=== PATIENT | female | born 1975 | race Caucasian/White ===

== ENCOUNTER 2018-05-16 08:20 | Inpatient (IN) ==
--- NOTE | 2018-05-16 08:39 | P.HPOB ---
History of Present Illness Primary Care Physician: No Primary Care Physician Medications and Allergies Allergies Allergy/AdvReac Type Severity Reaction Status Date / Time No Known Allergies Allergy Uncoded 01/13/15 21:59 Caprini VTE Risk Assessment Caprini Risk Assessment Model: Point Value = 1 Point Value = 2 Point Value = 3 Point Value = 5 Age 41-60 Minor surgery BMI > 25 kg/m2 Swollen legs Varicose veins or History of unexplained or recurrent spontaneous Oral contraceptives or hormone replacement Sepsis (< 1 month) Serious lung disease, including pneumonia (< 1 month) Abnormal pulmonary function Acute myocardial infarction Congestive heart failure (< 1 month) History of inflammatory bowel disease Medical patient at bed rest Age 61-74 Arthroscopic surgery Major open surgery (> 45 min) Laparoscopic surgery (> 45 min) Malignancy Confined to bed (> 72 hours) Immobilizing plaster cast Central venous access Age >= 75 History of VTE Family history of VTE Factor V Leiden Prothrombin [id number] Lupus anticoagulant Anticardiolipin antibodies Elevated serum homocysteine Heparin-induced thrombocytopenia Other congenital or acquired thrombophilia Stroke (< 1 month) Elective arthroplasty Hip, pelvis, or leg fracture Acute spinal cord injury (< 1 month) Prophylaxis Regimen: Total Risk Factor Score Risk Level Prophylaxis Regimen 0-1 Low Early ambulation 2 Moderate Order ONE of the following: *Sequential Compression Device (SCD) *Heparin 5000 units SQ BID 3-4 Higher Order ONE of the following medications: *Heparin 5000 units SQ TID *Enoxaparin/Lovenox 40 mg SQ daily (WT < 150 kg, CrCl > 30 mL/min) *Enoxaparin/Lovenox 30 mg SQ daily (WT < 150 kg, CrCl > 10-29 mL/min) *Enoxaparin/Lovenox 30 mg SQ BID (WT < 150 kg, CrCl > 30 mL/min) AND/OR *Sequential Compression Device (SCD) 5 or more Highest Order ONE of the following medications: *Heparin 5000 units SQ TID (Preferred with Epidurals) *Enoxaparin/Lovenox 40 mg SQ daily (WT < 150 kg, CrCl > 30 mL/min) *Enoxaparin/Lovenox 30 mg SQ daily (WT < 150 kg, CrCl > 10-29 mL/min) *Enoxaparin/Lovenox 30 mg SQ BID (WT < 150 kg, CrCl > 30 mL/min) AND *Sequential Compression Device (SCD)
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
[2018-05-16] MEDS ORDERED: Sod Chloride 0.9% Inj 1,000 ML IV.CONT PRN (08:46)
[2018-05-16] MEDS ORDERED: Naloxone Inj 0.4 MG/ML Vial IV.PUSH PRN (08:46)
[2018-05-16] MEDS ORDERED: Sodium Chlor 0.9% Inj 500 ML IV.SIG PRN (08:46)
[2018-05-16] MEDS ORDERED: fentaNYL Citrate Inj 100 MCG/2 ML Ampul IV.PUSH PRN ×2 (08:46)
[2018-05-16] MEDS ORDERED: fentaNYL 2MCG-Bupiv 0.125% Epi 150 ML EPIDURAL ONE (08:59)
[2018-05-16] MEDS ORDERED: Oxytocin 30 Units/500ml Premix 30 UNITS/500 ML BAG IV.SIG ONE (09:00)
[2018-05-16] MEDS ORDERED: Citric Acid/Sodium Citrate Liq 30 ML UDC PO SCH (09:00)
[2018-05-16 09:12] LABS: Baso % (Auto) 0.3 % (0.0-2.0); Eos # (Auto) 0.1 th/mm3 (0.0-0.4); Eos % (Auto) 0.6 % (0.0-4.0); Hematocrit 38.5 % (35.0-46.0); Hemoglobin 13.5 gm/dL (11.6-15.3); Lymph % (Auto) 19.5 % (9.0-44.0); Mean Corpuscular Hemoglobin 32.6 pg (27.0-34.0); Mono # (Auto) 0.7 th/mm3 (0.0-0.9); Mono % (Auto) 7.2 % (0.0-8.0); Neut # (Auto) 7.4 th/mm3 (1.8-7.7); Neut % (Auto) 72.4 % (16.0-70.0); Platelet Count 163 th/mm3 (150-450); Red Blood Count 4.14 mil/mm3 (4.00-5.30); Red Cell Distribution Width 14.9 % (11.6-17.2); White Blood Count 10.2 th/mm3 (4.0-11.0)
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
[2018-05-16] MEDS ORDERED: Penicillin G Potassium Inj 5,000,000 UNIT in Sodium Chloride 0.9% Inj 100 ML IV.SIG ONE (09:30)
[2018-05-16] MEDS ORDERED: fentaNYL Citrate Inj 100 MCG/2 ML Ampul EPIDURAL ONE (09:38)
[2018-05-16 09:55] LABS: Hepatitits B Surface Antigen Reactive (Nonreactive)
[2018-05-16 09:57] LABS: Rubella IgG Antibody 60.7 IU/mL (10.0-500.0)
[2018-05-16] MEDS ORDERED: fentaNYL 2MCG-Bupiv 0.125% Epi 150 ML EPIDURAL PRN (10:00)
[2018-05-16 10:24] LABS: Hepatitis A IgM Antibody Nonreactive (Nonreactive)
[2018-05-16 10:33] LABS: Alanine Aminotransferase 123 U/L (10-53); Albumin 2.3 g/dL (3.4-5.0); Anion Gap 9 meq/L (5-15); Aspartate Aminotransferase 137 U/L (15-37); Blood Urea Nitrogen 7 mg/dL (7-18); Calcium 8.2 mg/dL (8.5-10.1); Carbon Dioxide 21.6 meq/L (21.0-32.0); Chloride 109 meq/L (98-107); Glomerular Filtration Rate Greater Than 89 mL/min (>89); Glucose,Random 97 mg/dL (74-106); Potassium 3.4 meq/L (3.5-5.1); Sodium 140 meq/L (136-145)
[2018-05-16 10:36] LABS: Alkaline Phosphatase 246 U/L (45-117); Total Protein 6.9 g/dL (6.4-8.2)
--- NOTE | 2018-05-16 11:35 | P.OBLABOR ---
Subjective Interval history: Patient states she feels comfortable. IUPC placed for better monitoring of contractions. scalp electrode not place due to mother with positive labs for hep B and hep C. Objective Vital Signs: Vital Signs - 8 hr 05/16/18 08:33 05/16/18 08:45 05/16/18 09:13 Temperature Pulse Rate 83 73 Respiratory Rate 18 Blood Pressure 148/77 H 144/73 H 05/16/18 09:25 05/16/18 09:30 05/16/18 10:10 Temperature 97.7 F Pulse Rate 86 74 Respiratory Rate 19 Blood Pressure 138/76 05/16/18 10:15 05/16/18 10:37 05/16/18 10:45 Temperature 97.6 F Pulse Rate 87 67 70 Respiratory Rate 16 Blood Pressure 128/82 126/76 05/16/18 11:15 Temperature Pulse Rate 75 Respiratory Rate Blood Pressure 118/72 Objective: Pelvic Exam: Cervix: mid position Dilatation:8 Effacement: 80 Station: 0 Presentation: vertex Membranes: ruptured Uterine Contractions: Q3 mins FHT's: Category: 2 Baseline: 130 Reactive: yes Variability:mod Decels: variables Assessment and Plan - Diagnosis (1) Active labor Status: Acute (2) Drug dependence affecting Code(s): O99.320 - Drug use complicating , unspecified trimester Status: Acute (3) Hepatitis B Code(s): B19.10 - Unspecified viral hepatitis B without hepatic coma Status: Acute (4) Hepatitis C Code(s): B19.20 - Unspecified viral hepatitis C without hepatic coma Status: Acute - Plan 42-year-old at 36 weeks and 6 days who presents in active labor. Discussed with patient the risks of including uterine rupture and she would like to proceed. Discussed with OB hospitalist, Dr. Peña, she agrees that patient is a good candidate for . -Anticipate vaginal delivery () -Cervical exam 880/0 -Cat 2 tracing, NST reassuring - labs: positive for hep B and hep C, will obtain hep C viral load. Pt denies IVDU. -GBS positive -c/w penicillin for GBS prophylaxis -IUPC placed and amnioinfusion started due to variables on monitoring sdw Dr. Ortega - Attending Attestation I was present with resident for the entirety of the the procedure: placement of IUPC. Will not place scalp electrodes given hepatitis B and C positive status. Counseled mom on hepatitis status and will collect liver enzymes and viral load. Baby will require hepatitis B immunoglobulin and vaccine within 12 hours of , will alert pediatric team. Also will alert pediatric team regarding mom's Subutex use. Baby having a variable decelerations but with good variability and accelerations. Will continue to monitor closely. We have given bolus of fluid and also attempting repositioning on her side, also will try amnioinfusion.
--- NOTE | 2018-05-16 12:15 | P.OBLABOR ---
Addendum entered and electronically signed by Hiram Fry MD, R2 12:21: reviewed monitoring strip with , it is Cat 1, NST reassuring. Original Note: Subjective Interval history: Cervical check done again. Patient is progressing well. Mild discomfort with contractions. No other complaints. Objective Vital Signs: Vital Signs - 8 hr 05/16/18 08:33 05/16/18 08:45 05/16/18 09:13 Temperature Pulse Rate 83 73 Respiratory Rate 18 Blood Pressure 148/77 H 144/73 H 05/16/18 09:25 05/16/18 09:30 05/16/18 10:10 Temperature 97.7 F Pulse Rate 86 74 Respiratory Rate 19 Blood Pressure 138/76 05/16/18 10:15 05/16/18 10:37 05/16/18 10:45 Temperature 97.6 F Pulse Rate 87 67 70 Respiratory Rate 16 Blood Pressure 128/82 126/76 05/16/18 11:15 05/16/18 11:31 05/16/18 11:45 Temperature Pulse Rate 75 74 70 Respiratory Rate Blood Pressure 118/72 127/51 L 119/73 05/16/18 11:51 05/16/18 12:00 Temperature Pulse Rate 66 Respiratory Rate 18 Blood Pressure 112/65 Objective: Pelvic Exam: Cervix: mid pos Dilatation:9-10 Effacement: 100 Station: 0 Presentation: vertex Membranes: ruptured Uterine Contractions: Q3 mins FHT's: Category: 2 Baseline:120 Reactive: yes Variability:mod Decels: variables Assessment and Plan - Diagnosis (1) Active labor Status: Acute (2) Drug dependence affecting Code(s): O99.320 - Drug use complicating , unspecified trimester Status: Acute (3) Hepatitis B Code(s): B19.10 - Unspecified viral hepatitis B without hepatic coma Status: Acute (4) Hepatitis C Code(s): B19.20 - Unspecified viral hepatitis C without hepatic coma Status: Acute - Plan 42-year-old at 36 weeks and 6 days who presents in active labor. Discussed with patient the risks of including uterine rupture and she would like to proceed. Discussed with OB hospitalist, Dr. Peña, she agrees that patient is a good candidate for . -Anticipate vaginal delivery () -Cervical exam 9-/0 -Cat 2 tracing, NST reassuring - labs: positive for hep B and hep C, will obtain hep C viral load. Pt denies IVDU. -GBS positive -c/w penicillin for GBS prophylaxis -IUPC placed and amnioinfusion started due to variables on monitoring sdw Dr. Ortega - Attending Attestation I was present with resident during reexamination of patient. She is now 9 to 10 cm with anterior cervical lip. Will continue close monitoring with anticipation of vaginal delivery.
--- NOTE | 2018-05-16 13:16 | P.OBLABOR ---
Subjective Interval history: Cervical check done again. Patient is progressing well. Mild discomfort with contractions. No other complaints. Objective Vital Signs: Vital Signs - 8 hr 05/16/18 08:33 05/16/18 08:45 05/16/18 09:13 Temperature Pulse Rate 83 73 Respiratory Rate 18 Blood Pressure 148/77 H 144/73 H 05/16/18 09:25 05/16/18 09:30 05/16/18 10:10 Temperature 97.7 F Pulse Rate 86 74 Respiratory Rate 19 Blood Pressure 138/76 05/16/18 10:15 05/16/18 10:37 05/16/18 10:45 Temperature 97.6 F Pulse Rate 87 67 70 Respiratory Rate 16 Blood Pressure 128/82 126/76 05/16/18 11:15 05/16/18 11:31 05/16/18 11:45 Temperature Pulse Rate 75 74 70 Respiratory Rate Blood Pressure 118/72 127/51 L 119/73 05/16/18 11:51 05/16/18 12:00 05/16/18 12:15 Temperature 97.7 F Pulse Rate 66 70 Respiratory Rate 18 Blood Pressure 112/65 05/16/18 12:25 05/16/18 12:30 05/16/18 12:45 Temperature Pulse Rate 70 73 73 Respiratory Rate Blood Pressure 05/16/18 12:50 05/16/18 12:55 05/16/18 13:05 Temperature Pulse Rate 78 75 74 Respiratory Rate 17 Blood Pressure 05/16/18 13:07 Temperature 98.2 F Pulse Rate Respiratory Rate Blood Pressure Objective: Pelvic Exam: Cervix: mid position Dilatation: 10 Effacement: 100 Station: 0 Presentation: vertex Membranes: ruptured Uterine Contractions: Q 3mins FHT's: Category: 1 Baseline: 120 Reactive: yes Variability: mod Decels: early Assessment and Plan - Diagnosis (1) Active labor Status: Acute (2) Drug dependence affecting Code(s): O99.320 - Drug use complicating , unspecified trimester Status: Acute (3) Hepatitis B Code(s): B19.10 - Unspecified viral hepatitis B without hepatic coma Status: Acute (4) Hepatitis C Code(s): B19.20 - Unspecified viral hepatitis C without hepatic coma Status: Acute - Plan 42-year-old at 36 weeks and 6 days who presents in active labor. Discussed with patient the risks of including uterine rupture and she would like to proceed. Discussed with OB hospitalist, Dr. Peña, she agrees that patient is a good candidate for . -Anticipate vaginal delivery () -Cervical exam 100/0 -Cat 1 tracing, NST reassuring - labs: positive for hep B and hep C, will obtain hep C viral load. Pt denies IVDU. -GBS positive -c/w penicillin for GBS prophylaxis -IUPC placed and s/p 500ml bolus of amnioinfusion due to variables on previous monitoring sdw Dr. Ortega - Attending Attestation I was present with resident for reevaluation of the patient. - Robert Ortega
[2018-05-16] MEDS ORDERED: Penicillin G Sodium Inj 2,500,000 UNITS in Sodium Chlor 0.9% Inj 100 ML IV.SIG SCH (14:00)
[2018-05-16] MEDS ORDERED: Oxytocin 30 Units/500ml Premix 30 UNITS/500 ML BAG IV.CONT PRN (14:39)
[2018-05-16] MEDS ORDERED: Bisacodyl 10 MG Supp RECTAL PRN (14:39)
[2018-05-16] MEDS ORDERED: Acetaminophen 325 MG Tablet PO PRN (14:39)
[2018-05-16] MEDS ORDERED: Witch Hazel 50%/Glyderin 12.5% 40 Pad Jar RECTAL PRN (14:39)
[2018-05-16] MEDS ORDERED: Benzocaine 20% Top Spray 60 ML Can TOPICAL PRN (14:39)
--- NOTE | 2018-05-16 14:39 | P.OBDELI ---
Weeks Gestation: 37 Patient Started Active Labor: Yes Medical Induction of Labor: No Artificial Rupture of Membrane: No Anesthesia: Epidural Episiotomy: none Vaginal Delivery: Presentation: Occiput anterior Nuchal Cord: None Delayed Cord Clamping (45 sec): Yes Placenta: Spontaneous delivery Laceration: 1 deg (superficial at 9, 3 and 6 o'clock, 2 interrupted 3.0 chronic sutures placed at 3 o'clock position) Repair: Chromic interrupted (2 interrupted 3.0 chronic sutures placed at 3 o' clock position) Estimated blood loss (mL): 150 : Male Additional Information: Delivery supervised by Dr. Ortega apgars 8/9 wt: 7lbs 6oz Attending note: I was present for the entire delivery and agree with the documentation above. No complications with the delivery. There were 3 very superficial 1st degree lacerations of the vaginal wall. Only one needed suturing due to oozing blood, the other two achieved hemostasis with pressure only. Blood loss was minimal and baby is doing well. - Robert Ortega
[2018-05-16 14:58] LABS: Bacteria,Urine Rare /hpf; Bilirubin,Urine Negative (Negative); Clarity,Urine Hazy (Clear); Color,Urine Amber (Yellw/Straw); Glucose,Urine (UA) Negative (Negative); Leukocyte Esterase,Urine Negative (Negative); Mucus,Urine Few /lpf (Occasional); Nitrite,Urine Negative (Negative); Specific Gravity,Urine 1.027 (1.002-1.035); Squamous Epithelial Cell,Urine 1 /hpf (0-5)
[2018-05-16 14:59] LABS: Urobilinogen,Urine 0.2 mg/dL (Less than 2)
[2018-05-16 15:18] VITALS: RESP 18
[2018-05-16] MEDS ORDERED: Diphtheria/Tetanus/Pertussis Vaccine Inj 0.5 ML Syringe IM ONE (16:00)
[2018-05-16] MEDS ORDERED: Senna/Docusate Sodium 8.6/50 MG Tablet PO SCH (21:00)
[2018-05-16] MEDS ORDERED: Penicillin G Potassium Inj 2,500,000 UNIT in Sodium Chlor 0.9% Inj 100 ML IV.SIG SCH (22:00)
[2018-05-17] MEDS ORDERED: Potassium Chloride 10 MEQ ER Capsule PO ONE (06:42)
--- NOTE | 2018-05-17 08:29 | P.PNOB ---
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 Original Note: Subjective Post day: 1 Interval history: Pt seen and examined this morning. day # 1 AFVSS overnight. Decreased lochia. Denies dysuria. No breast tenderness. She is feeding the baby via bottle. Appetite good. No nausea or vomiting. Patient is passing flatus but has not yet had a bowel movement. Ambulating well. Pain is well controlled. Denies calf pain or shortness of breath. Otherwise, she is doing well this morning and has no other concerns. Objective Vital Signs/I&O: Vital Signs 05/16/18 08:33 05/16/18 08:45 05/16/18 09:13 Temperature Pulse Rate 83 73 Respiratory Rate 18 Blood Pressure 148/77 H 144/73 H 05/16/18 09:25 05/16/18 09:30 05/16/18 10:10 Temperature 97.7 F Pulse Rate 86 74 Respiratory Rate 19 Blood Pressure 138/76 05/16/18 10:15 05/16/18 10:37 05/16/18 10:45 Temperature 97.6 F Pulse Rate 87 67 70 Respiratory Rate 16 Blood Pressure 128/82 126/76 05/16/18 11:15 05/16/18 11:31 05/16/18 11:45 Temperature Pulse Rate 75 74 70 Respiratory Rate Blood Pressure 118/72 127/51 L 119/73 05/16/18 11:51 05/16/18 12:00 05/16/18 12:15 Temperature 97.7 F Pulse Rate 66 70 Respiratory Rate 18 Blood Pressure 112/65 05/16/18 12:25 05/16/18 12:30 05/16/18 12:45 Temperature Pulse Rate 70 73 73 Respiratory Rate Blood Pressure 05/16/18 12:50 05/16/18 12:55 05/16/18 13:05 Temperature Pulse Rate 78 75 74 Respiratory Rate 17 Blood Pressure 05/16/18 13:07 05/16/18 13:10 05/16/18 13:40 Temperature 98.2 F Pulse Rate 93 H 80 Respiratory Rate Blood Pressure 125/84 05/16/18 14:29 05/16/18 14:30 05/16/18 14:42 Temperature 98.3 F Pulse Rate 86 80 Respiratory Rate 17 16 Blood Pressure 112/71 124/76 05/16/18 15:02 05/16/18 15:16 05/16/18 15:17 Temperature Pulse Rate 73 88 Respiratory Rate 18 Blood Pressure 137/57 L 108/68 05/16/18 15:46 05/16/18 16:01 05/16/18 16:16 Temperature Pulse Rate 72 76 80 Respiratory Rate Blood Pressure 125/51 L 123/64 120/56 L 05/16/18 16:50 05/16/18 20:00 Temperature 97.8 F 98.0 F Pulse Rate 66 66 Respiratory Rate 18 18 Blood Pressure 123/67 123/79 Intake & Output 05/16/18 05/17/18 05/17/18 18:59 06:59 18:59 Weight 88 kg Other: Weight On Admission 88 kg Result Diagrams: 05/16/18 08:40 05/16/18 08:40 Objective Remarks: GENERAL: Well-nourished, well-developed patient. CARDIOVASCULAR: Regular rate and rhythm without murmurs, gallops, or rubs. RESPIRATORY: Breath sounds equal bilaterally. No accessory muscle use. ABDOMEN/GI: Abdomen soft, non-tender. Fundus: Firm, non-tender at umbilicus. GENITOURINARY: Light to moderate bleeding. EXTREMITIES: No cyanosis, non-tender, without signs of DVT. +2 LE edema BL, improving. 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 Stop: 05/20/18 08:59 Ephedrine Sulfate (Ephedrine/Ns Syringe) 10 mg IV.PUSH UNSCH PRN PRN Reason: SEE LABEL COMMENTS Stop: 05/17/18 09:38 Fentanyl Citrate (Fentanyl Inj) 50 mcg IV.PUSH Q1H PRN PRN Reason: Pain Scale 3 - 5 Fentanyl Citrate (Fentanyl Inj) 100 mcg IV.PUSH Q1H PRN PRN Reason: PAIN SCALE 6 TO 10 Lactated Ringer's (Lr 1000 Ml Inj) 1,000 mls @ 125 mls/hr IV.CONT .Q8H GORGE Last Admin: 05/17/18 07:23 Dose: Not Given Lactated Ringer's (Lr 1000 Ml Inj) 1,000 mls @ 3,000 mls/hr IV.SIG UNSCH PRN PRN Reason: compromise or epidural Sodium Chloride (Ns Inj) 500 mls @ 1,000 mls/hr IV.SIG UNSCH PRN PRN Reason: SEE LABEL COMMENTS Sodium Chloride (Ns Inj) 1,000 mls @ 100 mls/hr IV.CONT .Q10H PRN PRN Reason: SEE LABEL COMMENTS Fentanyl/Bupivacaine/Sodium Chlor (Fentanyl 2 Mcg-Bupiv 0.125% Epi) 150 mls @ 12 mls/hr EPIDURAL PRN PRN PRN Reason: for Labor Pain Last Admin: 05/16/18 09:59 Dose: 12 mls/hr Oxytocin (Pitocin 30 Units/Ns 500 Ml Premix) 30 units in 500 mls @ 100 mls/hr IV.CONT UNSCH PRN PRN Reason: Heavy bleeding Penicillin G Potassium 2,500, (000 unit/ Sodium Chloride) 100 mls @ 200 mls/hr IV.SIG Q4H GORGE Last Admin: 05/16/18 23:58 Dose: Not Given Ibuprofen (Motrin) 800 mg PO Q8H PRN PRN Reason: For Cramping Last Admin: 05/16/18 23:23 Dose: 800 mg Lactulose (Lactulose Liq) 30 ml PO DAILY PRN PRN Reason: SEVERE CONSITIPATION Lidocaine HCl (Xylocaine 1% Inj) 0.1 ml I-DERMAL PRN PRN PRN Reason: For IV start Stop: 05/19/18 08:45 Lidocaine HCl (Xylocaine 1% Inj) 10 ml INFILTRATN PRN PRN PRN Reason: For episiotomy repair Stop: 05/18/18 08:45 Mineral Oil (Muri-Lube Oil) 10 ml TOPICAL PRN PRN PRN Reason: PRN perineal massage Miscellaneous Information (Misc Information) 1 each OTHER UNSCH PRN PRN Reason: SEE LABEL COMMENTS Stop: 05/17/18 09:38 Miscellaneous Information (Misc Information) 1 each OTHER UNSCH PRN PRN Reason: SEE LABEL COMMENTS Stop: 05/17/18 09:38 Naloxone HCl (Narcan Inj) 0.1 mg IV.PUSH Q2M PRN PRN Reason: for opiate reversal Ondansetron HCl (Zofran Odt) 4 mg PO Q6H PRN PRN Reason: NAUSEA OR VOMITING Vit/Calcium/Iron/Folic Ac (Stuartnatal Plus 3) 1 tab PO DAILY [facility] Senna/Docusate Sodium (Jennifer-Colace) 1 tab PO BID [facility] Last Admin: 05/16/18 21:00 Dose: Not Given Sennosides (Senokot) 17.2 mg PO Q12H PRN PRN Reason: Moderate Constipation Sodium Chloride (Ns Flush) 2 ml IV.FLUSH BID [facility] Last Admin: 05/16/18 21:00 Dose: 2 ml Sodium Chloride (Ns Flush) 2 ml IV.FLUSH PRN PRN PRN Reason: FLUSH AFTER USING IV ACCESS Witch [place]/Glycerin (Tucks Pads) 1 applicatio RECTAL QID PRN PRN Reason: HEMORRHOIDS Assessment and Plan - Diagnosis (1) Hepatitis C Code(s): B19.20 - Unspecified viral hepatitis C without hepatic coma Status: Acute (2) Drug dependence affecting Code(s): O99.320 - Drug use complicating , unspecified trimester Status: Acute Plan: see plan for hep C (3) Hepatitis B Code(s): B19.10 - Unspecified viral hepatitis B without hepatic coma Status: Acute (4) Vaginal after () Code(s): O34.219 - Maternal care for unspecified type scar from previous delivery Status: Acute - Plan 42-year-old at 36 weeks and 6 days who presented in active labor yesterday delivered via . 1. S/p post day #1 -Continue routine care. -Percocet and Motrin PRN pain. -Encouraged OOB. Advised pelvic rest for 6 wks. -Re: ctrl, she would like depot shot. 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 complicated by positive Hep B & C and substance use -Discussed diagnosis of hep b and c with patient yesterday -Hep C viral load and genotype pending -Pt denies IVDU -Pt admits only to periotic small amounts of Subutex use that she got from a friend (does not remember quantity). Last used Subutex 2 days ago. -She is followed in [facility] for her substance use and depression treatment. She plans to continue treatment with [facility]. -Plan to coordinate GI referral for Hep B and C as an outpatient at f/u appt -Anticipate discharge tomorrow. sadew Dr. Albarran - Attending Attestation patient seen, examined, and discussed with Dr. Cheung. I agree with assessment and management as documented and discussed with me. Pt requests discharge today. Clinically stable - discharge home.
[2018-05-17 08:49] VITALS: BP 121/56; PULSE 83; TEMP 97.6
[2018-05-17] MEDS ORDERED: Prenatal Vit/Ca/Iron/Folic Acid Tablet PO SCH (09:00)
[2018-05-17] MEDS ORDERED: medroxyPROGESTERone Acetate Inj 150 MG/ML Syringe IM ONE (11:00)
[2018-05-17 23:53] LABS: Varicella Zoster IgM 0.64 (Negative)
[2018-05-18 17:50] LABS: Varicella Zoster IgG 901.4 INDEX (Negative)
== END 2018-05-17 14:37 | disposition home or self-care (01) | DRG 806 ==
LOC: HOBED 08:20 → H2E 08:47 → H1EA 16:43
PROVIDERS: ADMIT Family Medicine; ATTEND Family Medicine
CPT/HCPCS: 80053; 80074; 80307; 81001; 83518; 84112; 85025; 86592; 86762; 86787; 86900; 86901; 87150; 87389; 87491; 87522; 87591; 87902; G0481; G0483; J1050; J2540; J7120